=== PATIENT | female | born 1950 | race Caucasian/White ===

== ENCOUNTER 2016-05-29 13:00 | Inpatient (IN) | payer MEDICARE, OTHER ==
[~2016-05-29] VITALS: Ht 167.6 cm; Wt 112.4 kg
--- NOTE | ~2016-05-29 | HP ---
PATIENT'S NAME: EDMOND RODRIGUEZ [facility] AGE: 65 Y [address] ROOM: [place] [id number] LOCATION: [facility] [place] ADMIT DATE: 06/08/2016 History & Physical DISCHARGE DATE: 06/09/2016 FAMILY PHYSICIAN: MEJIA ATKINS ATTENDING PHYSICIAN: Rex Gould DATE OF SERVICE: ADDENDUM: Her preoperative history and physical from her primary care provider from the week before was reviewed. There are no changes to her general health by history and examination. MD WILD RICHEY/thania /[id number] D: [id number] T: [id number] HISTORY & PHYSICAL
--- NOTE | ~2016-05-29 | OR ---
PATIENT'S NAME: EDMOND RODRIGUEZ [facility] AGE: 65 Y [address] ROOM: [place] [address] LOCATION: [facility] [place] ADMIT DATE: 06/05/2016 OR/Procedure Report DISCHARGE DATE: FAMILY PHYSICIAN: MEJIA ATKINS ATTENDING PHYSICIAN: Rex Gould SURGEON: Rex Gould MD TRAPPER ANIMAL: DATE OF PROCEDURE: 06/05/2016 PREOPERATIVE DIAGNOSES: 1. Lumbar spinal stenosis. 2. Lumbar degenerative disk disease. 3. Lumbar neurogenic claudication. 4. Low back pain. POSTOPERATIVE DIAGNOSES: 1. Lumbar spinal stenosis. 2. Lumbar degenerative disk disease. 3. Lumbar neurogenic claudication. 4. Low back pain. PROCEDURES PERFORMED: 1. Lumbar laminectomy at L2 with decompression of L2-3 interspace. 2. Lumbar laminectomy of L3 with decompression of L3-4 interspace. 3. Lumbar laminectomy of L4 with decompression of L4-5 interspace. HEALTH AND SOCIAL CARE TEACHER: MICHOACANO Rhodes ANESTHESIA: General. ESTIMATED BLOOD LOSS: 350 mL. COMPLICATIONS: None. SPECIMENS: None. FINDING: Severe stenosis with facet arthropathy. OPERATIVE INDICATIONS: The patient is a 65-year-old female whom I have followed for symptomatic lumbar spinal stenosis. She had failed conservative treatment and was offered surgery in the form of a lumbar decompression. After the details, risks, benefits, and options were explained, she freely consented to surgery. DESCRIPTION OF PROCEDURE: After the patient was correctly identified and PATIENT'S NAME: EDMOND RODRIGUEZ [facility] AGE: 65 Y [address] ROOM: [place] [address] LOCATION: [facility] [place] ADMIT DATE: 06/05/2016 OR/Procedure Report DISCHARGE DATE: FAMILY PHYSICIAN: MEJIA ATKINS ATTENDING PHYSICIAN: Rex Gould operative site initialed, she was taken back to the operating room and placed in the supine position. After general anesthesia was induced, she was placed in the prone position on the Orion frame on the James table with all bony prominences well-padded and protected. The back was prepped and draped in the usual sterile fashion. She received IV antibiotics prior to surgery. 10 mL of 0.25% Marcaine with epinephrine was injected in line with the incision. A 10-blade was used to make a midline incision over the operative levels. Dissection was taken down through subcutaneous tissue with electrocautery. The dorsal lumbar fascia was incised in the midline, and a subperiosteal dissection was performed to expose the posterior elements. A Kerrison was placed on the lamina and verified at L4-5. This was marked. Next, a total laminectomy was performed by resecting the spinous process and thinning the lamina at L2, L3, and L4. The upper aspect of L2 was preserved. A high-speed bur was used to thin the lamina. Kerrison were used to complete the midline decompression. The facets were undercut bilaterally to allow for lateral recess decompression. The foramen were decompressed under direct visualization using foraminotomy Kerrison. All foramen probed freely. The disks were degenerative and bulging, but not ruptured. The wound was irrigated and dried. Bipolar electrocautery was used to coagulate epidural veins, and FloSeal was injected along the edges of the laminectomy for hemostasis. 1 g of vancomycin powder was divided between the superficial and deep tissues. The wound was repaired in layers with #1 Vicryl on the fascia, 0 Vicryl on the subcutaneous tissues, and seven on the skin. Sterile dressing was applied, and the patient was awakened from anesthesia and taken to the recovery room in stable condition. A surgical supply assistant was necessary in this procedure for evacuation of blood during decompression. MD WILD RICHEY/thania /[id number] d: 06/05/16 1254 t: 06/11/16 1433, OPERATIVE SUMMARY
[~2016-05-29 13:00] MED LIST: ADALAT CC60 MG PO; CELEBREX200 MG PO; CYMBALTA30 MG PO; CYMBALTA60 MG PO; GLUCOPHAGE1000 MG PO; GLUCOTROL5 MG PO; LEVEMIR FL100 UNIT/1 SUB-Q; LISINOPRIL-HCT1 EAC2 PO; NORCO 10-325 T1 EACH PO; OCUVITE EYE +1 EACH PO; PROTONIX40 MG PO
--- NOTE | 2016-06-05 14:35 | NUR ---
Introduced self to spouse, patient sleeping. They live in [place], [place]. They have a hospital bed, shower bench and other DME. No additional items needed. He will be around to help her as well as additional family coming to help. No identified needs at this time.
--- NOTE | 2016-06-05 17:30 | NUR ---
Significant Event:PT TO FLOOR AT 1400 WITH L2-L4 LAMENECTOMY. HX OF RHENARDS SO WILL NOT BE ABLE TO USE O2 SAT FINGER PROBE. O2 MONITOR ON FOREHEAD. HX ALSO OF DESATING AFTER ANESTHESIA. DILAUDID NATIONAL FACILITIES MANAGER WITH CO2 AND O2 MONITORING AND CO2 RUNNING IN THE 40'S. VSS. 02 AT 2L PER NC NOW. MAY BE UP WITH BACK BRACE ON. HAS NOT VOIDED YET. DIABETIC. BACK INCISION DRESSING D/I. IV RIGHT WRIST. Follow up:
--- NOTE | 2016-06-06 04:49 | NUR ---
Significant Event: PATIENT IS ALERT AND ORIENTATED X4. AMBULATES WITH BACK BRASS WALKER GB AND ONE ASSIST. LOG ROLL TO GET UP AND REPOSITON HOB AT 30 DEGREES. LAMI L2 L3 L4. SHE WALKED IN RODRIGUEZ X ONE. HENRY INSERTED AT 0130 WITH 600 ML OUT IMMEDIATELY. ACHS WITH SLIDING SCALE INSULIN NEEDED. COMPRESSION SOCKS AND PNUMATICS. MAY USE BATHROOM WITHOUT BRACE ON. ON PARTY COORDINATOR PUMP FOR PAIN. PAIN IS MANAGED AT THIS TIME. CLEAR LIQUID DIET TO ADVANCE TOLERATED TO DIABETIC DIET. VERY PLEASANT AND COORPERATIVE WITH CARES. Follow up: CONTINUE AMBULATING, MONITOR BLOOD SUGAR.
[2016-06-06 05:15] LABS: BASOPHIL % 0.4 %; EOSINOPHIL # 0.1 K/uL (0.0-0.5); EOSINOPHIL % 0.6 %; HEMATOCRIT 29.4 % (33.0-46.0); HEMOGLOBIN 9.5 g/dL (10.0-15.0); IMMATURE GRANULOCYTE % 0.4 %; LYMPHOCYTE # 1.8 K/uL (0.8-4.0); LYMPHOCYTE % 19.6 %; MCH 29.3 pg (27.0-34.0); MCHC 32.3 gm/dL (32.0-36.5); MCV 90.7 fl (83.0-98.0); MONOCYTE # 0.9 K/uL (0.0-1.0); MONOCYTE % 9.6 %; MPV 10.2 fl (9.4-12.4); NEUTROPHIL # (ANC) 6.5 K/uL (1.8-7.8); NEUTROPHIL % 69.4 %; NRBC % 0 /100WBC (0-0.00); PLATELET COUNT 243 K/uL (150-450); RBC 3.24 M/uL (3.50-5.50); RDW-CV 14.1 % (11.9-14.6); WBC 9.4 K/uL (4.0-11.0)
--- NOTE | 2016-06-06 17:07 | NUR ---
Pt has been up amb in room, up chair, back to bed, and will get up again before supper. Likes to lie on Rt side when in bed. Pt has back dressing, dry and intact. CSM WNL, Pain is in low back and anterior thighs to knees. Pain up to 10 this morning about 0945. Torodol IM and ofirmev given and pain got down to a 4. Pt had spasms in afternoon and soma given at 1430 and she slept a while after that. Torodol repeated at 1700 for pain about 7. Pt continues on CONSUMER EDUCATION SPECIALIST as ordered. She can have IR Oxycodone if needed. CONSUMER EDUCATION SPECIALIST flowsheet at bedside. She used 2.26 mg of IV dilaudid CONSUMER EDUCATION SPECIALIST this shift. Pt on O2 at 1L. Continues on ETCO2 and SaO2 monitor. Bates inserted last noc for inability to void and pt says always has that problem after surgery. At one time this shift, urine in bates tubing was bloody with a few clots. Cleared up to loan urine. Pt uses IS at 1500. Accuchecks AC and HS. Has skin breakdown left lower abd fold that aloe applied to. Pt said from surgery. Spouse here most of shift.
--- NOTE | 2016-06-06 19:16 | NUR ---
Central supply doesn't have pt size of knee high bentley hose. BOARD FILLER checked 2 other floors and can't find pt size. Left off for now and pneumatic calf pumps on
--- NOTE | 2016-06-07 03:54 | NUR ---
Significant Event:pt is a/o x3. needs to wear brace when up moving around. iv to r wrist has ns@ 20 with dilaudid licensed insurance agent w/ 0.1mg demand only w/ 10 min lockout. pt hasfoley w/ sufficient uop. 1L per nc. pt recieved tordol around 2330 for spasms. accuchecks ac/hs, bs was 207 and got 2 units plus 12 of levemir. pt had thigh high teds that were causing her issues, adriane husain wrote to switch to knee high but cs is out of knee high teds, need to follow up on wednesday to obtain. Follow up:monitor licensed insurance agent
--- NOTE | 2016-06-07 17:27 | NUR ---
AAOx3. Cooperative with cares. Dilaudid SPRINKLER FITTER HELPER d/c'd this a.m. Schulz pulled @1100. Up to chair w/PT- GB, walker, 2 assist. Returned to bed 1.5hrs later. Up to BSC this afternoon and voided. Gave Soma x2, [place] 5/325 and then 10/325, solumedrol IV and Ativan IV. Patient more comfortable and now moving w/SBA-1assist w/GB and walker w/slow steady gait. Changed dressing to island barrier; incision stapled and intact. No redness noted. ADA diet. BS AC/HS. Drinking well, needs encouragement for more food intake.
--- NOTE | 2016-06-08 03:54 | NUR ---
Significant Event:pt is a/o x3. pt can have soma q 6 hrs , last @ 2311, norco 1 tab last @ 3106. pt has back brace. has been sitting up in chair for part of the night. pt voided earlier in shift, not b=measured but bladder scan only showed 20mls. pt uses commode. pt is a 1 assist just moves very slowly. pt can also have valium but none given this shift. accuchecks ac/hs with bs of 274 last night. pt restarted on metformin last night. Follow up:encourage ambulation.
--- NOTE | 2016-06-08 09:45 | NUR ---
Followed up with patient. Still could not think of any needs. Will probably go home tomorrow.
--- NOTE | 2016-06-08 19:11 | NUR ---
Significant Event: AAOx3. Cooperative with cares. Ambulated in hallways today. Up to chair and BR. Voiding well, no BM yet. Tolerating ADA diet well. BS AC/HS w/mild SSI. RFA PIV s/l'd. Soma, IV Valium, [place] 10/325, and IV Dilaudid given alternating Q3hrs for Valium/Soma, [place] Q3hrs and Dilaudid for breakthrough. Probable d/c home tomorrow w/3hr drive. Concerns about pain coverage. at BS. VSS, afebrile, on RA. Dressing to Lumbar d/i. Follow up:
--- NOTE | 2016-06-09 03:29 | NUR ---
SIGNIFICANT EVENT: Patient is alert & oriented. VSS on RS. Pain is best controlled giving [place] q3h with valium/soma (alternate these q6H). [place] x3 last at approx 0345, noted relief. Dilaudid x1 - little to no relief, last given at 1850. Valium x1, last at 0345. Soma x1, last at 0015. Patient is post op day 4 lumbar lami (L2,3,4,5) - avoid extended time in chair. 1PA to ambulate and BR. Important to provide adequate pain medication on DC for trip home as pt lives in [place]. Spouse in room first part of shift, very helpful in getting pt to BR, repositioning. PIV to R) FA is SL, flushes well but no BR. Pleasant and cooperative with cares.
[2016-06-09] MEDS ORDERED: SOMA350 MG PO (10:17)
[2016-06-09] MEDS ORDERED: VALIUM5 MG PO (10:18)
--- NOTE | 2016-06-09 17:05 | NUR ---
DISCHARGE: Pt. was educated on lami d/c instructions, recovery from lami, medication education on soma and valium. Verbalized understanding, no questions or concerns. IV removed by primary nurse. Taken to front door by aide and driven home by .
== END 2016-06-09 14:50 | disposition disaster alternative care site (69) | DRG 516 ==
LOC: G3N 06-05 05:51 → GMSU 06-05 05:51
PROVIDERS: ADMIT Orthopaedic Surgery Orthopaedic Surgery of the Spine
PROC: 01NB0ZZ Release Lumbar Nerve, Open Approach (ICD-10-PCS; principal; 2016-06-05)
DX: M51.16 Intervertebral disc disorders with radiculopathy, lumbar region (principal); Z68.41 Body mass index [BMI] 40.0-44.9, adult; J44.9 Chronic obstructive pulmonary disease, unspecified; I10 Essential (primary) hypertension; M51.36 Other intervertebral disc degeneration, lumbar region; E11.9 Type 2 diabetes mellitus without complications; M48.06 Spinal stenosis, lumbar region; I73.00 Raynaud's syndrome without gangrene; F32.9 Major depressive disorder, single episode, unspecified; Z96.652 Presence of left artificial knee joint; K21.9 Gastro-esophageal reflux disease without esophagitis; E66.01 Morbid (severe) obesity due to excess calories
CPT/HCPCS: G0378; J0131; J0171; J0690; J1040; J1100; J1170; J1885; J2001; J2250; J2405; J3010; J3360; J3370; J3480; J7030; J7050; J7120; P9045